=== PATIENT | male | born 1950 ===

== ENCOUNTER → 2024-09-14 09:48 | Outpatient (BNVA) | payer MEDICARE, SELFPAY | PROVIDERS: Visit Provider Nurse Practitioner Family | DX: D36.14 Benign neoplasm of peripheral nerves and autonomic nervous system of thorax (principal); L57.8 Other skin changes due to chronic exposure to nonionizing radiation; L81.4 Other melanin hyperpigmentation; D22.5 Melanocytic nevi of trunk; L82.1 Other seborrheic keratosis; Z08 Encounter for follow-up examination after completed treatment for malignant neoplasm; Z85.828 Personal history of other malignant neoplasm of skin; L57.0 Actinic keratosis; D48.5 Neoplasm of uncertain behavior of skin | CPT/HCPCS: 11102; 17004; 99203 ==

== ENCOUNTER → 2025-03-16 10:19 | Outpatient (BNVA) | payer MEDICARE, SELFPAY | PROVIDERS: Visit Provider Nurse Practitioner Family | DX: L57.8 Other skin changes due to chronic exposure to nonionizing radiation (principal); L81.4 Other melanin hyperpigmentation; D36.14 Benign neoplasm of peripheral nerves and autonomic nervous system of thorax; L82.1 Other seborrheic keratosis; D22.5 Melanocytic nevi of trunk; Z08 Encounter for follow-up examination after completed treatment for malignant neoplasm; Z85.828 Personal history of other malignant neoplasm of skin; L57.0 Actinic keratosis; L91.8 Other hypertrophic disorders of the skin; R20.8 Other disturbances of skin sensation; Z78.9 Other specified health status; L53.8 Other specified erythematous conditions | CPT/HCPCS: 17004; 17110; 99213 ==